=== PATIENT | male | born 1965 | race Two or more races ===

== ENCOUNTER 2017-06-22 07:10 | Outpatient (CLI) | payer OTHER ==
[~2017-06-22 07:10] MED LIST: HYZAAR 100-251 UDTAB; HYZAAR 100-251 UDTAB PO; HYZAAR 50-12.1 UDTAB PO; NORVASC5 MG; NORVASC5 MG PO; VASOTEC20 M1 PO; ZYRTEC10 MG PO
== END 2017-06-22 07:15 | disposition home or self-care (01) ==
LOC: LAB 07:10
DX: I10 Essential (primary) hypertension (principal); R80.9 Proteinuria, unspecified; E11.9 Type 2 diabetes mellitus without complications; E03.9 Hypothyroidism, unspecified; E78.2 Mixed hyperlipidemia

== ENCOUNTER 2018-02-06 06:20 | Outpatient (CLI) | payer OTHER | END 2018-02-06 15:00 | disposition home or self-care (01) | LOC: LAB 06:20 | DX: Z00.00 Encounter for general adult medical examination without abnormal findings (principal); I10 Essential (primary) hypertension ==

== ENCOUNTER 2018-02-10 08:40 | Outpatient (CLI) | payer OTHER | END 2018-02-10 08:47 | disposition home or self-care (01) | LOC: SONOGRAMA 08:40 | DX: Z87.442 Personal history of urinary calculi (principal) ==

== ENCOUNTER 2018-03-31 09:16 | Outpatient (CLI) | payer OTHER | END 2018-03-31 09:30 | disposition home or self-care (01) | LOC: LAB 09:16 | DX: J11.1 Influenza due to unidentified influenza virus with other respiratory manifestations (principal); J06.9 Acute upper respiratory infection, unspecified ==

== ENCOUNTER 2018-08-25 10:19 | Outpatient (CLI) | payer OTHER | END 2018-08-25 10:32 | disposition home or self-care (01) | LOC: LAB 10:19 | DX: R10.9 Unspecified abdominal pain (principal); Z80.0 Family history of malignant neoplasm of digestive organs; E55.9 Vitamin D deficiency, unspecified; I10 Essential (primary) hypertension; E78.49 Other hyperlipidemia ==

== ENCOUNTER 2019-06-25 07:32 | Outpatient (CLI) | payer OTHER | END 2019-06-25 07:37 | disposition home or self-care (01) | LOC: NUCLEAR 07:32 | DX: I20.8 Other forms of angina pectoris (principal) | CPT/HCPCS: 78452; 93017; A9500 ==

== ENCOUNTER 2019-10-16 06:39 | Outpatient (CLI) | payer OTHER | END 2019-10-16 06:43 | disposition home or self-care (01) | LOC: NUCLEAR 06:39 | PROVIDERS: ATTEND Internal Medicine | DX: I20.8 Other forms of angina pectoris (principal) ==

== ENCOUNTER → 2020-04-13 06:32 | Outpatient (CLI) | payer OTHER | END | disposition home or self-care (01) | LOC: LAB 06:32 | PROVIDERS: ATTEND Internal Medicine | DX: D64.89 Other specified anemias (principal); R10.84 Generalized abdominal pain; E03.8 Other specified hypothyroidism; E78.49 Other hyperlipidemia; R80.8 Other proteinuria; E11.9 Type 2 diabetes mellitus without complications; R73.09 Other abnormal glucose ==

== ENCOUNTER → 2020-10-19 06:13 | Outpatient (CLI) | payer OTHER | END | disposition home or self-care (01) | LOC: LAB 06:13 | PROVIDERS: ATTEND Internal Medicine | DX: D64.89 Other specified anemias (principal); R10.84 Generalized abdominal pain; E78.49 Other hyperlipidemia ==

== ENCOUNTER 2021-04-20 06:23 | Outpatient (CLI) | payer OTHER | END 2021-04-20 06:24 | disposition home or self-care (01) | LOC: LAB 06:23 | PROVIDERS: ATTEND Internal Medicine | DX: D64.9 Anemia, unspecified (principal); R10.9 Unspecified abdominal pain; E78.5 Hyperlipidemia, unspecified; R80.9 Proteinuria, unspecified; E11.9 Type 2 diabetes mellitus without complications; R73.09 Other abnormal glucose ==

== ENCOUNTER 2021-10-19 06:14 | Outpatient (CLI) | payer OTHER | END 2021-10-19 06:19 | disposition home or self-care (01) | LOC: LAB 06:14 | DX: D64.9 Anemia, unspecified (principal); R10.9 Unspecified abdominal pain; E78.5 Hyperlipidemia, unspecified; N40.0 Benign prostatic hyperplasia without lower urinary tract symptoms; Z79.01 Long term (current) use of anticoagulants ==

== ENCOUNTER → 2021-12-06 11:12 | Outpatient (CLI) | payer OTHER | END | disposition home or self-care (01) | LOC: LAB 11:12 | PROVIDERS: ATTEND General Practice | DX: R05.9 Cough, unspecified (principal); R50.9 Fever, unspecified; R06.02 Shortness of breath; Z20.822 Contact with and (suspected) exposure to COVID-19 ==

== ENCOUNTER → 2021-12-09 | Outpatient (CLI) | payer OTHER | END | disposition home or self-care (01) | LOC: RAD 12:17 | PROVIDERS: ATTEND General Practice | DX: M25.562 Pain in left knee (principal) ==

== ENCOUNTER 2022-03-21 06:29 | Outpatient (CLI) | payer OTHER | END 2022-03-21 06:30 | disposition home or self-care (01) | LOC: LAB 06:29 | DX: Z00.00 Encounter for general adult medical examination without abnormal findings (principal); E78.5 Hyperlipidemia, unspecified; E55.9 Vitamin D deficiency, unspecified; N39.0 Urinary tract infection, site not specified; R10.9 Unspecified abdominal pain; R42 Dizziness and giddiness; Z12.5 Encounter for screening for malignant neoplasm of prostate ==

== ENCOUNTER → 2022-07-12 06:15 | Outpatient (CLI) | payer OTHER | END | disposition home or self-care (01) | LOC: LAB 06:15 | PROVIDERS: ATTEND Internal Medicine | DX: D64.9 Anemia, unspecified (principal); R10.9 Unspecified abdominal pain; E78.5 Hyperlipidemia, unspecified; R80.9 Proteinuria, unspecified; E11.9 Type 2 diabetes mellitus without complications ==

== ENCOUNTER 2024-02-12 06:28 | Outpatient (CLI) | payer OTHER ==
[2024-02-12 07:12] LABS: HEMATOCRIT 43.6 % (39.0-48.0); MEAN CELL VOLUME 83.6 fL (80.0-100.00); MEAN CORPUSCULAR HEMOGLOBIN 28.8 pg (27.00-32.0); MEAN CORPUSCULAR HGB CONC 34.4 g/dl (32.0-36.0); PLATELET COUNT 325 K/uL (150-450); RED BLOOD COUNT 5.22 M/uL (4.00-6.00); RED CELL DISTRIBUTION WIDTH 14.5 % (11.5-14.5)
[2024-02-12 07:38] LABS: URINE APPEARANCE Clear; URINE BILIRRUBIN Negative (NEGATIVE); URINE BLOOD Negative; URINE COLOR Yellow; URINE GLUCOSE Negative (NEGATIVE); URINE KETONE Negative (NEGATIVE); URINE LEUKOCYTE Negative; URINE NITRATE Negative; URINE PROTEIN Negative (NEGATIVE); URINE UROBILINOGEN 0.2 E.U./dl
[2024-02-12 07:58] LABS: URINE BACTERIA 3.6 uL (0.0-1933); URINE EPITHELIAL CELLS 0.1 uL (0.0-38.8); URINE RBC 0.7 uL (0.0-20.8); URINE WBC 1.5 uL (0.0-23.2)
[2024-02-12 08:11] LABS: ALBUMIN 3.7 gm/dL (3.4-5.0); BILIRUBIN TOTAL 0.42 mg/dL (0.3-1.2); CALCIUM 9.1 mg/dL (8.5-10.1); CHOL HDL RATIO 2.6 (0-5.0); CREATININE SERUM 0.97 mg/dL (0.70-1.30); GFR 79.77; GLOBULINA 3.4 G/DL (2.4-3.5); POTASSIUM 3.82 mEq/L (3.5-5.1); T4 TOTAL 9.31 UG/DL (4.5-12.1); TOTAL PROTEIN 7.1 gm/dL (6.4-8.2); TSH 1.82 uIU/mL (0.358-3.74)
== END 2024-02-12 06:29 | disposition home or self-care (01) ==
LOC: LAB 06:28
PROVIDERS: ATTEND Internal Medicine
DX: I11.9 Hypertensive heart disease without heart failure (principal); E78.9 Disorder of lipoprotein metabolism, unspecified; E03.9 Hypothyroidism, unspecified; E11.9 Type 2 diabetes mellitus without complications

== ENCOUNTER 2024-08-20 07:37 | Outpatient (CLI) | payer OTHER | END 2024-08-20 07:38 | disposition home or self-care (01) | LOC: NUCLEAR 07:37 | PROVIDERS: ATTEND Internal Medicine | DX: I11.9 Hypertensive heart disease without heart failure (principal) ==

== ENCOUNTER 2024-11-29 08:31 | Outpatient (CLI) | payer OTHER ==
[2024-11-29 09:57] LABS: BASO % 1.2 % (0.1-1.2); EOS # 0.10 (0.04-0.54); EOS % 2.9 % (0.7-7.0); LYMPH # 1.06 (1.18-3.74); LYMPH % 30.7 % (19.3-53.1); MEAN PLATELET VOLUME 9.10 fl (9.4-12.4); MONO # 0.55 (0.24-0.82); NEUT # 1.69 (1.56-6.13); NEUT % 49.0 % (34.0-71.1); RED CELL DISTRIBUTION WIDTH 14.0 % (11.6-14.4)
[2024-11-29 09:59] LABS: MONO % 15.9 % (4.7-12.5)
[2024-11-29 11:00] LABS: URINE APPEARANCE Clear; URINE BILIRRUBIN Negative (NEGATIVE); URINE BLOOD Negative; URINE COLOR Yellow; URINE GLUCOSE Negative (NEGATIVE); URINE KETONE Negative (NEGATIVE); URINE LEUKOCYTE Negative; URINE NITRATE Negative; URINE PROTEIN Negative (NEGATIVE); URINE UROBILINOGEN 0.2 E.U./dl
[2024-11-29 11:04] LABS: URINE BACTERIA 7.1 uL (0.0-1933); URINE WBC 1.9 uL (0.0-23.2)
[2024-11-29 11:06] LABS: ALT/SGPT 47.0 U/L (12-78); AST/SGOT 25.0 U/L (15-37); BILIRUBIN TOTAL 0.55 mg/dL (0.3-1.2); BUN CREA RATIO 14.0 (7.0-25.0); CHOL HDL RATIO 2.6 (0-5.0); CREATININE SERUM 0.96 mg/dL (0.70-1.30); GFR 80.45; GLOBULINA 3.6 G/DL (2.4-3.5); GLUCOSE FASTING 106.0 mg/dL (65-100); HDL 65.0 mg/dl (40-60); LDL 92.0 mg/dl (0-130); OSMOLALITY SERUM 286.0 MOSM/KG (275-295); PROSTATIC SPECIFIC ANTIGEN 1.58 NG/ML (0.010-4.00); TSH 1.1 uIU/mL (0.358-3.74); VLDL 11.0 (0-39)
[2024-11-29 11:14] LABS: URINE CAST 0.00 uL (0.0-1.40); URINE EPITHELIAL CELLS 1.0 uL (0.0-38.8); URINE RBC 1.1 uL (0.0-20.8)
== END 2024-11-29 08:34 | disposition home or self-care (01) ==
LOC: LAB 08:31
PROVIDERS: ATTEND Internal Medicine Cardiovascular Disease
DX: N40.0 Benign prostatic hyperplasia without lower urinary tract symptoms (principal); E11.9 Type 2 diabetes mellitus without complications; I11.9 Hypertensive heart disease without heart failure; E78.2 Mixed hyperlipidemia; E03.9 Hypothyroidism, unspecified